=== PATIENT | female | born 1970 | race Caucasian/White ===

== ENCOUNTER → 2016-10-27 | Outpatient (CLI) | payer OTHER ==
[~2016-10-27] MED LIST: ACHD5005 PO; ATOR10TA66 PO; ATOR20TA66 PO; BCP PO; CALC-817 PO; CITA10TA70 PO; CTLP20T PO; DULO60CA58 PO; EST.1TD TOP; ESTR1TAB24 PO; HYDR-3729 PO; IBP600T1 PO; LEVO175T2 PO; LVT.1T PO; MAGN400T39 PO; MUPI15CR TP; NEBI5TAB8 PO; OXYC-12 PO; PHEN1CPM2 PO; PHEN37.555 PO; TOPI25TA2 PO
== END ==
LOC: LAB 11:00
PROVIDERS: ATTEND Internal Medicine Endocrinology, Diabetes & Metabolism
DX: Z08 Encounter for follow-up examination after completed treatment for malignant neoplasm (principal); Z85.850 Personal history of malignant neoplasm of thyroid
CPT/HCPCS: 36415; 84443

== ENCOUNTER → 2016-12-25 | Outpatient (CLI) | payer OTHER | LOC: LAB 16:28 | PROVIDERS: ATTEND Internal Medicine Endocrinology, Diabetes & Metabolism | DX: C73 Malignant neoplasm of thyroid gland (principal) | CPT/HCPCS: 36415; 84443 ==

== ENCOUNTER → 2017-01-28 | Outpatient (CLI) | payer OTHER | LOC: LAB 14:08 | PROVIDERS: ATTEND Internal Medicine Endocrinology, Diabetes & Metabolism | DX: C73 Malignant neoplasm of thyroid gland (principal) | CPT/HCPCS: 36415; 84443 ==

== ENCOUNTER → 2017-02-26 | Outpatient (CLI) | payer OTHER ==
[2017-02-27 07:20] LABS: ESTRADIOL 80 pg/mL
== END ==
LOC: LAB 14:55
PROVIDERS: ATTEND Obstetrics & Gynecology
DX: M25.50 Pain in unspecified joint (principal); R23.2 Flushing
CPT/HCPCS: 36415; 82670; 84550; 85652; 86038; 86430